=== PATIENT | female | born 1960 | race Caucasian/White ===

== ENCOUNTER → 2017-01-09 | Outpatient (CLI) | payer BC ==
--- NOTE | 2017-01-09 15:09 | MAMMOGRAPHY REPORT ---
BILATERAL DIGITAL SCREENING MAMMOGRAM TOMOSYNTHESIS WITH CAD: 01/09/2017 CLINICAL HISTORY: Routine screening. Patient has no complaints. TECHNIQUE: Breast tomosynthesis in addition to standard 2D mammography was performed. Current study was also evaluated with a Computer Aided Detection (CAD) system. COMPARISON: Comparison is made to exams dated: 12/31/2015 mammogram, 12/29/2014 mammogram, 12/28/2013 m ammogram, 12/27/2012 mammogram, 12/22/2011 mammogram, and 12/17/2010 mammogram - [facility] enter. BREAST COMPOSITION: The tissue of both breasts is heterogeneously dense, which may obscure small mas ses. FINDINGS: No suspicious masses, calcifications, or areas of architectural distortion are noted in ei ther breast. There has been no significant interval change compared to prior exams. Scattered bilater al benign-appearing calcifications are not significantly changed. IMPRESSION: ACR BI-RADS CATEGORY 2: BENIGN There is no mammographic evidence of malignancy. A 1 year screening mammogram is recommended. The pa tient will receive written notification of the results. Approximately 10% of breast cancers are not detected with mammography. A negative mammographic report should not delay biopsy if a clinically suggestive mass is present. Latosha Cabrales M.D. ah/:01/09/2017 12:53:29 [employer] Greeter: Leny VAUGHN)(M), [facility] letter sent: Normal 1/2 BI-RADS Code: ACR BI-RADS Category 2: Benign
== END | disposition home or self-care (01) ==
LOC: C.MAMM 10:28
PROVIDERS: ATTEND Obstetrics & Gynecology
DX: Z12.31 Encounter for screening mammogram for malignant neoplasm of breast (principal)

== ENCOUNTER → 2017-07-16 | Outpatient (CLI) | payer BC | END | disposition home or self-care (01) | LOC: C.PAPS 09:13 | PROVIDERS: ATTEND Obstetrics & Gynecology | DX: Z01.419 Encounter for gynecological examination (general) (routine) without abnormal findings (principal) ==

== ENCOUNTER → 2017-07-17 | Outpatient (CLI) | payer BC | END | disposition home or self-care (01) | LOC: C.LABSPEC 19:33 | PROVIDERS: ATTEND Obstetrics & Gynecology | DX: Z12.11 Encounter for screening for malignant neoplasm of colon (principal) ==

== ENCOUNTER → 2017-07-23 | Outpatient (CLI) | payer BC ==
--- NOTE | 2017-07-23 15:54 | MAMMOGRAPHY REPORT ---
UNILATERAL RIGHT DIGITAL DIAGNOSTIC MAMMOGRAM TOMOSYNTHESIS WITH CAD AND TARGETED RIGHT ULTRASOUND: CLINICAL HISTORY: The patient reports a focal area of swelling in the right axillary region in [facility], which is currently decreased in size. She also had some associated tenderness at that time which has also subsided. TECHNIQUE: Breast tomosynthesis in addition to standard 2D mammography was performed. Current study was also evaluated with a Computer Aided Detection (CAD) system. Right CC, XCCL, and MLO 2-D and jackelin osynthesis images were obtained. COMPARISON: Comparison is made to exams dated: 01/09/2017 mammogram, 12/31/2015 mammogram, 12/29/2014 ma mmogram, 12/28/2013 mammogram, 12/27/2012 mammogram, and 12/22/2011 mammogram - [facility]. BREAST COMPOSITION: The tissue of the right breast is heterogeneously dense, which may obscure small masses. FINDINGS: A triangle marker nelson the site of the palpable finding in the right upper outer quadrant posteriorly. There are no suspicious masses or other suspicious mammographic abnormalities seen in t his region. In the right lower outer quadrant anteriorly there is an oval circumscribed 6 mm mass fo r which ultrasound was performed. The remainder of the right breast is stable compared to prior exam s, without suspicious masses, calcifications, or areas of architectural distortion noted. Scattered benign-appearing calcifications are stable. Targeted ultrasound was performed of the area of the focal swelling and tenderness pointed out by the patient in the right axillary region. There are no suspicious masses or other suspicious sonographi c abnormalities in this region. Morphologically normal right axillary lymph nodes are seen, which tapia ve normal fatty velasquez and normal peripheral cortices. No axillary adenopathy is evident. In the righ t breast at 7:00 periareolar region, there is an oval circumscribed anechoic mass which measures 5 x 4 mm; this corresponds with the circumscribed mammographic mass and is consistent with a benign simpl e cyst. IMPRESSION: ACR BI-RADS CATEGORY 2: BENIGN, TARGETED ULTRASOUND ACR BI-RADS CATEGORY 2: BENIGN No suspicious mammographic or sonographic abnormality to explain focal right axillary swelling and te nderness which has currently improved. There is no mammographic or targeted sonographic evidence of malignancy. Recommend clinical follow-up for right axillary symptoms; any decision to biopsy should be based on clinical grounds. Also recommend routine bilateral screening mammograms which are due Ju ly 2017. The patient has been verbally notified of the results. Approximately 10% of breast cancers are not detected with mammography. A negative mammographic report should not delay biopsy if a clinically suggestive mass is present. Latosha Cabrales M.D. ah/:07/23/2017 08:48:45 Cloth Baler: Carlie VAUGHN)(Tanya), [facility] letter sent: Normal 1/2 BI-RADS Code: ACR BI-RADS Category 2: Benign Ultrasound BI-RADS: ACR BI-RADS Category 2: Benign
== END | disposition home or self-care (01) ==
LOC: C.MAMM 08:07
PROVIDERS: ATTEND Obstetrics & Gynecology
DX: N63.11 Unspecified lump in the right breast, upper outer quadrant (principal)